=== PATIENT | female | born 1965 | race Caucasian/White ===

== ENCOUNTER 2016-10-22 18:11 | Emergency (ER) | payer BC, OTHER ==
[~2016-10-22] VITALS: Ht 170.2 cm; Wt 66.3 kg
[~2016-10-22 18:11] MED LIST: ASPI-391 PO; ASPI325T45 PO; BUPRTAB51 PO; CALC625T13 PO; CIPR-255 PO; CYM/30 PO; IBUP-103 PO; MULT-506 PO; ONDA4TAB7 SL
[2016-10-22 18:15] VITALS: Ht 170.2 cm; Wt 66.3 kg
[2016-10-22] MEDS ORDERED: BUPIVACAINE 0.5 % 5 MG/1 ML MPF 30ML VIAL INFIL STA (18:38)
[2016-10-22] MEDS ORDERED: XYLOCAINE 1%/SOD BICARB 20 ML VIAL INFIL STA (18:38)
[2016-10-22] MEDS ORDERED: WLLXL300 PO (18:40)
[2016-10-22] MEDS ORDERED: ONDANSETRON 4MG OD TAB PO STA (19:03)
[2016-10-22] MEDS ORDERED: MoRPHine SULFATE 4 MG/ML 1 ML CARP\\VIAL IM STA (19:03)
--- NOTE | 2016-10-22 19:14 | DIAGNOSTIC IMAGING REPORT ---
CT OF THE HEAD WITHOUT CONTRAST CLINICAL HISTORY: Head trauma. COMPARISON STUDY: Head CT November 11, 2013. CT DOSE: 537.48 mGy.cm TECHNIQUE: Helical axial images of the head were obtained without IV contrast. Automated exposure control was utilized for the study. FINDINGS: No acute intracranial hemorrhage, midline shift or mass effect is present. Brain volume is normal. Ventricular system is normal. Basilar cisterns are patent. There are no extra-axial collections. Parsons-white differentiation is maintained. There are no findings to suggest acute dural sinus thrombosis or acute territorial infarct. There is no calvarial fracture. Visualized portions of the sinuses and the mastoid air cells are clear. IMPRESSION: 1. No acute intracranial findings. 2. No calvarial fracture. Electronically signed by: Randall Chairez M.D. 10/22/2016 7:13 PM Dictated Date/Time: 10/22/2016 7:10 PM
--- NOTE | 2016-10-22 19:56 | DIAGNOSTIC IMAGING REPORT ---
LEFT SHOULDER MIN 2 VIEWS ROUTINE CLINICAL HISTORY: Trauma, left shoulder injury COMPARISON: None FINDINGS: Alignment of the left shoulder is anatomic. There is no acute fracture. There is mild arthritis of the acromioclavicular and glenohumeral joints. IMPRESSION: No acute fracture or dislocation of the left shoulder. Electronically signed by: Randall Chairez M.D. 10/22/2016 7:54 PM Dictated Date/Time: 10/22/2016 7:53 PM
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
[2016-10-22] MEDS ORDERED: CEPH500C PO (20:56)
[2016-10-22] MEDS ORDERED: HYDR-5688 PO (20:56)
[2016-10-22] MEDS ORDERED: NORCO 5/325MG HOME PACK PO STA (20:59)
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
[2016-10-22 21:23] VITALS: BP 111/71; PULSE 81; TEMP 36.8; O2SAT 100
== END 2016-10-22 21:24 | disposition home or self-care (01) ==
LOC: C.EDB 18:12 → C.EDD 21:24
DX: S61.012A Laceration without foreign body of left thumb without damage to nail, initial encounter (principal); W23.0XXA Caught, crushed, jammed, or pinched between moving objects, initial encounter; Y92.89 Other specified places as the place of occurrence of the external cause; Y93.55 Activity, bike riding; F32.9 Major depressive disorder, single episode, unspecified; K58.9 Irritable bowel syndrome, unspecified